=== PATIENT | female | born 1970 | race American Indian/Alaskan Native ===

== ENCOUNTER 2017-04-12 12:29 | Emergency (ER) | payer MEDICAID ==
[2017-04-12 12:36] VITALS: BP 132/84; PULSE 86; RESP 16; TEMP 98.6; O2SAT 98
--- NOTE | 2017-04-12 12:57 | C.PDOC ---
History Of Present Illness 46 y/o female presents to the ED with complaints of right leg pain. [facility] yesterday hitting her leg and now has a bruise. Denies weakness, numbness or any other complaints. Time Seen by Provider: 04/12/17 12:38 Chief Complaint (Nursing): Lower Extremity Problem/Injury History Per: Patient History/Exam Limitations: no limitations Onset/Duration Of Symptoms: Hrs Current Symptoms Are (Timing): Still Present Severity: Mild Recent travel outside of the [place]: No Past Medical History Reviewed: Historical Data, Nursing Documentation, Vital Signs Vital Signs: Last Vital Signs Temp 98.6 F 04/12/17 12:33 Pulse 86 04/12/17 12:33 Resp 16 04/12/17 12:33 BP 132/84 04/12/17 12:33 Pulse Ox 98 04/12/17 13:05 - Medical History PMH: No Chronic Diseases Family History: States: Unknown Family Hx - Social History Hx Alcohol Use: No Hx Substance Use: No - Immunization History Hx Tetanus Toxoid Vaccination: No Hx Influenza Vaccination: No Hx Pneumococcal Vaccination: No Review Of Systems Musculoskeletal: Positive for: Other (right leg pain with bruising) Physical Exam - Physical Exam Appears: Non-toxic, No Acute Distress Skin: Warm, Dry, No Rash, Ecchymosis (ecchymotic lesion 4x4cm to right medial thigh, smaller lesion to left medial thigh) Head: Atraumatic, Normacephalic Eye(s): bilateral: Normal Inspection Neck: Normal ROM Cardiovascular: Rhythm Regular, No Murmur Respiratory: Normal Breath Sounds, No Rales, No Rhonchi, No Wheezing Extremity: Normal ROM, Capillary Refill (<2 seconds), No Deformity, No Swelling , Other (ecchymosis to right thigh mildly tender) Neurological/Psych: Oriented x3, Normal Speech, Normal Motor, Normal Sensation Gait: Steady ED Course And Treatment O2 Sat by Pulse Oximetry: 98 (room air) Pulse Ox Interpretation: Normal Medical Decision Making Medical Decision Makin46 year old female with leg pain s.p injury. Exam shows area of ecchymosis tender to right thigh. Patient ambulatory without distress. Xray not indicated, and will treat as contusion with Motrin for pain. Disposition Counseled Patient/Family Regarding: Diagnosis, Need For Followup, Rx Given - Disposition Disposition: HOME/ ROUTINE Disposition Time: 12:54 Condition: STABLE Additional Instructions: Take Motrin as needed every 6-8 hours for pain. May apply ice to affected area for 15 min twice a day Follow up with your primary medical doctor or clinic in 2-5 days for further evaluation. 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 - Scribe Statement The provider has reviewed the documentation as recorded by the Wan Chaves All medical record entries made by the Fernibe were at my direction and personally dictated by me. I have reviewed the chart and agree that the record accurately reflects my personal performance of the history, physical exam, medical decision making, and the department course for this patient. I have also personally directed, reviewed, and agree with the discharge instructions and disposition.
== END 2017-04-12 13:04 | disposition home or self-care (01) ==
LOC: C.ER 12:29
DX: S70.11XA Contusion of right thigh, initial encounter (principal); W22.8XXA Striking against or struck by other objects, initial encounter